=== PATIENT | female | born 1975 | race Caucasian/White ===

== ENCOUNTER 2016-06-22 12:44 | Emergency (ER) | payer OTHER ==
[2016-06-22 13:11] VITALS: BP 123/68
--- NOTE | 2016-06-22 13:25 | UC ---
Respiratory Complaint HPI - HPI Summary HPI Summary: sinus congestion for 2 weeks, chest congestion since last weekend. has had a few nights of fever. - History of Current Complaint Chief Complaint: UCGeneralIllness Stated Complaint: SINUS,COUGH,CONGESTION Time Seen by Provider: 06/22/16 13:13 Hx Obtained From: Patient Hx Last Menstrual Period: 2 weeks ago ?: No Onset/Duration: Sudden Onset, Lasting Weeks Severity Initially: Moderate Severity Currently: Moderate Pain Intensity: 6 Pain Scale Used: 0-10 Numeric Character: Cough: Nonproductive Aggravating Factors: Deep Breaths, Recumbent Position Alleviating Factors: Nothing Associated Signs And Symptoms: Positive: Fever, Wheezing, Nasal Congestion, Sinus Discomfort - Risk Factors Pulmonary Embolism Risk Factors: Negative - Allergies/Home Medications Allergies/Adverse Reactions: Allergies Allergy/AdvReac Type Severity Reaction Status Date / Time No Known Allergies Allergy Verified 06/22/16 13:11 PMH/Surg Hx/FS Hx/Imm Hx Previously Healthy: Yes - Surgical History Surgical History: None - Family History Known Family History: Negative: Cardiac Disease, Hypertension - Social History Alcohol Use: Occasionally Substance Use Type: None Smoking Status (MU): Never Smoked Tobacco Review of Systems Constitutional: Fever, Fatigue Skin: Negative Eyes: Negative ENT: Sore Throat, Nasal Discharge Respiratory: Shortness Of Breath, Cough Cardiovascular: Negative Gastrointestinal: Negative Genitourinary: Negative Motor: Negative Neurovascular: Negative Musculoskeletal: Negative Neurological: Negative Psychological: Negative All Other Systems Reviewed And Are Negative: Yes Physical Exam Triage Information Reviewed: Yes Appearance: Well-Nourished, Ill-Appearing, Pain Distress Vital Signs: Initial Vital Signs Temp 98.7 F 06/22/16 13:08 Pulse 106 06/22/16 13:08 Resp 16 06/22/16 13:08 BP 123/68 06/22/16 13:08 Pulse Ox 99 06/22/16 13:08 Vital Signs Reviewed: Yes Eye Exam: Normal Eyes: Positive: Conjunctiva Clear ENT: Positive: Pharyngeal erythema, Nasal congestion, Nasal drainage, TMs normal Dental Exam: Normal Neck exam: Normal Neck: Positive: Supple, Nontender, No Lymphadenopathy Respiratory Exam: Normal Respiratory: Positive: Chest non-tender, No respiratory distress, No accessory muscle use, Wheezing, Inspiration Cardiovascular Exam: Normal Cardiovascular: Positive: RRR, No Murmur Abdominal Exam: Normal Abdomen Description: Positive: Nontender, No Organomegaly, Soft Bowel Sounds: Positive: Present Musculoskeletal Exam: Normal Musculoskeletal: Positive: Strength Intact, ROM Intact, No Edema Neurological Exam: Normal Neurological: Positive: Alert, Muscle Tone Normal Psychological Exam: Normal Skin Exam: Normal UC Diagnostic Evaluation - Laboratory O2 Sat by Pulse Oximetry: 99 Respiratory Course/Dx - Course Course Of Treatment: hx obtained, exam performed, medication reviewed. prescriptions for bronchitis given. - Differential Dx/Diagnosis Differential Diagnosis/HQI/PQRI: Asthma, Bronchitis, Influenza, Laryngitis, Sinusitis, Tuberculosis Provider Diagnoses: bronchitis Discharge - Discharge Plan Condition: Stable Disposition: HOME Prescriptions: Albuterol HFA INHALER* [Ventolin HFA Inhaler*] 2 puff INH Q4H PRN #1 mdi PRN Reason: Cough guaiFENesin/CODIEN 100MG-10MG* [Robitussin AC 100Mg-10Mg*] 10 ml PO BEDTIME PRN #100 udc MDD 10 ml PRN Reason: Cough predniSONE TAB* [Deltasone TAB*] 40 mg PO DAILY #10 tab Patient Education Materials: Acute Bronchitis (ED) Additional Instructions: Take the medications as prescribed, Increase your fluid intake. Get plenty of rest. Follow up with any worsening symptoms.
== END 2016-06-22 13:27 | disposition home or self-care (01) ==
LOC: UCCORT 12:44
DX: J40 Bronchitis, not specified as acute or chronic (principal)
CPT/HCPCS: 99212; G0463

== ENCOUNTER 2016-07-10 19:56 | Emergency (ER) | payer OTHER ==
[2016-07-10 20:48] VITALS: BP 118/71
--- NOTE | 2016-07-10 20:59 | UC ---
Knee Pain HPI - HPI Summary HPI Summary: 41 yo female fell and landed on right patella 2 days ago bruised and is hurting more - History of Current Complaint Chief Complaint: UCLowerExtremity Stated Complaint: RIGHT KNEE INJURY-FALL Time Seen by Provider: 07/10/16 20:52 Hx Obtained From: Patient Hx Last Menstrual Period: uterine ablation Onset/Duration: Sudden Onset Severity Initially: Moderate Severity Currently: Moderate Location Of Injury: right knee Pain Intensity: 4 Pain Scale Used: 0-10 Numeric Character: Dull, Aching Aggravating Factor(s): Movement, Weight Bearing Alleviating Factor(s): Rest, Position Associated Signs And Symptoms: Positive: Swelling, Bruising Able to Bear Weight: Yes - Allergies/Home Medications Allergies/Adverse Reactions: Allergies Allergy/AdvReac Type Severity Reaction Status Date / Time No Known Allergies Allergy Verified 07/10/16 20:47 Home Medications: Home Medications NK [No Home Medications Reported] 07/10/16 [History Confirmed 07/10/16] PMH/Surg Hx/FS Hx/Imm Hx Previously Healthy: Yes - Surgical History Surgical History: None - Family History Known Family History: Negative: Cardiac Disease, Hypertension - Social History Alcohol Use: Occasionally Substance Use Type: None Smoking Status (MU): Never Smoked Tobacco - Immunization History Most Recent Tetanus Shot: 07/09/16 Review of Systems Constitutional: Negative Skin: Bruising Eyes: Negative ENT: Negative Respiratory: Negative Cardiovascular: Negative Gastrointestinal: Negative Genitourinary: Negative Motor: Negative Neurovascular: Negative Musculoskeletal: Arthralgia Neurological: Negative Psychological: Negative All Other Systems Reviewed And Are Negative: Yes Physical Exam Triage Information Reviewed: Yes Appearance: Well-Appearing, No Pain Distress, Well-Nourished Vital Signs: Initial Vital Signs Temp 98.7 F 07/10/16 20:42 Pulse 75 07/10/16 20:42 Resp 14 07/10/16 20:42 BP 118/71 07/10/16 20:42 Pulse Ox 97 07/10/16 20:42 Vital Signs Reviewed: Yes Eyes: Positive: Conjunctiva Clear ENT: Positive: Hearing grossly normal. Negative: Nasal congestion, Nasal drainage, Tonsillar exudate, Trismus, Muffled/hoarse voice Neck exam: Normal Neck: Positive: Supple, Nontender, No Lymphadenopathy Respiratory: Positive: Lungs clear, Normal breath sounds, No respiratory distress Cardiovascular: Positive: RRR, No Murmur Musculoskeletal: Positive: Strength Intact, ROM Intact Neurological: Positive: Alert Psychological Exam: Normal Knee Pain Course/Dx - Differential Dx/Diagnosis Provider Diagnoses: right knee contusion. rignt knee abrasion Discharge - Discharge Plan Condition: Stable Disposition: HOME Patient Education Materials: Contusion in Adults (ED), Abrasion (ED) Referrals: Shanthi Tyler MD [Primary Care Provider] - 1 Week (if not better) Additional Instructions: tylenol or advil for pain recheck for worsening symptoms/concerns of infection
--- NOTE | 2016-07-10 21:30 | RAD ---
Indication: Patellar region pain and abrasions following fall on Wednesday. Comparison: None. Technique: AP, tunnel, lateral, sunrise views RIGHT knee. REPORT AND IMPRESSION: Negative for effusion, fracture, malalignment. Very mild anterior soft tissue edema. No subcutaneous emphysema or conspicuous foreign body. Preserved joint spaces. Negative for arthropathic change.
== END 2016-07-10 21:46 | disposition home or self-care (01) ==
LOC: UCCORT 19:56
DX: S80.01XA Contusion of right knee, initial encounter (principal); S80.211A Abrasion, right knee, initial encounter; W19.XXXA Unspecified fall, initial encounter; Y93.9 Activity, unspecified; Y92.9 Unspecified place or not applicable
CPT/HCPCS: 99211; G0463

== ENCOUNTER 2017-07-06 15:23 | Emergency (ER) | payer OTHER ==
[2017-07-06 16:52] VITALS: BP 121/71
[2017-07-06] MEDS ORDERED: Cyclobenzaprine TAB* 10 MG PO ONE (17:23)
[2017-07-06] MEDS ORDERED: HYDROcodone/ACETAMIN 5-325 MG* 1 TAB PO ONE (17:23)
--- NOTE | 2017-07-06 17:29 | UC ---
Upper Extremity HPI - HPI Summary HPI Summary: 42 female presents to with complaints of right forearm injury and pain that began last night and worsened today. States she was using a belkofski bar and sledge hammer yesterday and thinks she may of aggravated/injured it but does not remember a specific incident. Has taken 800mg of ibuprofen, twice, today and tylenol with ice without relief. Pain worsens with moving wrist from side to side. Denies numbness/tingling. Nothing fell on arm, no concern for broken bone. IS able to move wrist and hand/fingers without issue. 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 Admits to swelling. Is right hand dominant. - History of Current Complaint Chief Complaint: UCUpperExtremity Stated Complaint: RIGHT ARM INJURY Time Seen by Provider: 07/06/17 16:54 Hx Obtained From: Patient Hx Last Menstrual Period: uterine ablation ?: No Onset/Duration: Sudden Onset, Lasting Hours, Still Present, Worse Since Severity Initially: Mild Severity Currently: Moderate Pain Intensity: 6 Pain Scale Used: 0-10 Numeric Location Of Pain: Is Discrete @ - right forearm Character: Aching Aggravating Factor(s): Movement, Internal/External Rotation - wrist Alleviating Factor(s): Nothing Associated Signs And Symptoms: Positive: Swelling Related History: Dominant Hand Right - Allergies/Home Medications Allergies/Adverse Reactions: Allergies Allergy/AdvReac Type Severity Reaction Status Date / Time No Known Allergies Allergy Verified 07/06/17 16:49 PMH/Surg Hx/FS Hx/Imm Hx - Additional Past Medical History Additional PMH: Denies PMHx - Surgical History Surgical History: None - Family History Known Family History: Negative: Cardiac Disease, Hypertension - Social History Alcohol Use: Occasionally Substance Use Type: None Smoking Status (MU): Never Smoked Tobacco - Immunization History Most Recent Tetanus Shot: 07/09/16 Vaccination Up to Date: Yes Review of Systems Constitutional: Negative Respiratory: Negative Cardiovascular: Negative Musculoskeletal: Arthralgia, Edema - right forearm, Myalgia Neurological: Negative All Other Systems Reviewed And Are Negative: Yes Physical Exam Triage Information Reviewed: Yes Appearance: Well-Appearing, Well-Nourished, Pain Distress - moderate with movement Vital Signs: Initial Vital Signs Temp 98.9 F 07/06/17 16:47 Pulse 74 07/06/17 16:47 Resp 16 07/06/17 16:47 BP 121/71 07/06/17 16:47 Pulse Ox 99 07/06/17 16:47 Neck: Positive: Supple Respiratory: Positive: Chest non-tender, Lungs clear, Normal breath sounds, No respiratory distress Cardiovascular: Positive: RRR, No Murmur, Pulses Normal - 2+ radial Musculoskeletal: Positive: Strength Intact, ROM Intact - pain with adduction and abduction of the right wrist, Edema @ - protrusion over the extensor pollicus longus and extensor digitorum muscle distal right forearm with tenderness to palpation, Other: - rest of msk normal without bruising, crepitus or step off Neurological: Positive: Alert Skin Exam: Normal Upper Extremity Course/Dx - Course Course Of Treatment: did not appear to require imaging at this time as patient has not had any significant trauma and due to TEA, HPI and PE. Appears to have sustained injury to muscle/tendon of extensor side of distal right forearm. Recommend continuing ibuprofen, muscle relaxer, heat/ice and rest. Give 3-5 days before improvement. aware of worsening signs adn symptoms to watch out for. follow up with pcp/ortho. no other concerns at this time. - Differential Dx/Diagnosis Differential Diagnosis/HQI/PQRI: Contusion, Fracture (Closed), Strain, Sprain Provider Diagnoses: contusion right forearm, muscle strain, forearm injury Discharge - Discharge Plan Condition: Stable Disposition: HOME Prescriptions: Cyclobenzaprine TAB* [Flexeril 10 MG TAB*] 5 mg PO BEDTIME PRN #10 tab PRN Reason: Spasms HYDROcodone/ACETAMIN 5-325 MG* [[place] 5-325 TAB*] 1 tab PO Q4H PRN #8 tab MDD 2 PRN Reason: Pain Patient Education Materials: Muscle Strain (ED), Arm Pain (ED) Referrals: Shanthi Tyler MD [Primary Care Provider] - Juan De La Cruz MD [Medical Doctor] - Additional Instructions: Continue taking ibuprofen to help with pain and inflammation. Apply heat and rest. Brace if comfortable. Pain medication as needed for intense discomfort. Muscle relaxer at bedtime to help with muscle tension. Any new or worsening symptoms or if symptoms persist please seek medical attention and follow up with ortho. Follow up with PCP.
== END 2017-07-06 17:34 | disposition home or self-care (01) ==
LOC: UCCORT 15:23
DX: S50.11XA Contusion of right forearm, initial encounter (principal); T14.8XXA Other injury of unspecified body region, initial encounter; X58.XXXA Exposure to other specified factors, initial encounter; Y92.9 Unspecified place or not applicable
CPT/HCPCS: 99212; A9270-GY; G0463

== ENCOUNTER 2017-09-15 07:51 | Emergency (ER) | payer OTHER ==
[2017-09-15 08:08] VITALS: BP 120/64
--- NOTE | 2017-09-15 08:29 | UC ---
Hand/Wrist HPI - HPI Summary HPI Summary: Right ring finger pain and swelling since yesterday. 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 She developed pain and swelling. No fever, chills, streaking. THere is swelling. No obvious trauma or FB. No contact with pricker or thorn. No dm. It hurts more to touch it. - History Of Current Complaint Chief Complaint: UCSkin Stated Complaint: RIGHT RING FINGER INJURY Time Seen by Provider: 09/15/17 08:18 Hx Obtained From: Patient Hx Last Menstrual Period: does not get ?: No Onset/Duration: Gradual Onset, Lasting Hours Severity Initially: Moderate Severity Currently: Moderate Pain Intensity: 5 Character Of Pain: Dull, Aching Aggravating Factor(s): Other - palpation. Alleviating Factor(s): Rest Associated Signs And Symptoms: Positive: Swelling, Redness. Negative: Bruising , Fever, Numbness/Tingling Related History: Dominant Hand Right - Allergies/Home Medications Allergies/Adverse Reactions: Allergies Allergy/AdvReac Type Severity Reaction Status Date / Time No Known Allergies Allergy Verified 09/15/17 08:06 PMH/Surg Hx/FS Hx/Imm Hx Previously Healthy: Yes - Surgical History Surgical History: None - Family History Known Family History: Negative: Cardiac Disease, Hypertension - Social History Occupation: Employed Full-time Alcohol Use: Occasionally Substance Use Type: None Smoking Status (MU): Never Smoked Tobacco - Immunization History Most Recent Tetanus Shot: 07/09/16 Vaccination Up to Date: Yes Review of Systems Skin: Other - redness. All Other Systems Reviewed And Are Negative: Yes Physical Exam Triage Information Reviewed: Yes Appearance: No Pain Distress, Well-Nourished, Ill-Appearing Vital Signs: Initial Vital Signs Temp 98.8 F 09/15/17 08:03 Pulse 85 09/15/17 08:03 Resp 16 09/15/17 08:03 BP 120/64 09/15/17 08:03 Pulse Ox 99 09/15/17 08:03 ENT: Positive: Normal ENT inspection. Negative: Pharyngeal erythema Respiratory: Positive: No respiratory distress, No accessory muscle use. Negative: Accessory muscle use Cardiovascular: Positive: No Murmur Abdomen Description: Negative: Distended Musculoskeletal Exam: Other - No pain with passive ROM testing of the right ring finger. Musculoskeletal: Positive: Edema @ - finger is generally edematous.. Negative: ROM Intact - Decreased rom of the finger due to swelling. Neurological: Positive: Alert, Muscle Tone Normal. Negative: Fatigued Psychological: Positive: Age Appropriate Behavior Skin Exam: Other Skin: Negative: rashes - Finger is pink and tender. No streaking. no redness up the arm and no right axillary adenopathy. No puncture wound, abcess, fluctuance. No signs of paronychia or fellon. Hand/Wrist Course/Dx - Course Course Of Treatment: likely cellulitis but no signs of FB or trauma. She agrees to go to ED for any worsening, otherwise f/u with pcp tomorrow. - Differential Dx/Diagnosis Provider Diagnoses: right finger cellulitis. Discharge - Sign-Out/Discharge Documenting (check all that apply): Discharge/Admit/Transfer - Discharge Plan Condition: Good Disposition: HOME Prescriptions: Dicloxacillin CAP* [Dynapen CAP*] 500 mg PO QID #40 cap Naproxen [Naproxen 500 mg tab] 500 mg PO BID PRN #20 tablet PRN Reason: Pain Patient Education Materials: Cellulitis (ED) Referrals: Shanthi Tyler MD [Primary Care Provider] - 1 Day - Billing Disposition and Condition Condition: GOOD Disposition: HOME
== END 2017-09-15 08:26 | disposition home or self-care (01) ==
LOC: UCCORT 07:51
DX: L03.011 Cellulitis of right finger (principal)
CPT/HCPCS: 99212; G0463

== ENCOUNTER 2018-08-03 15:27 | Emergency (ER) | payer OTHER ==
[2018-08-03 15:44] VITALS: BP 117/67
--- NOTE | 2018-08-03 16:47 | UC ---
Hand/Wrist HPI - HPI Summary HPI Summary: 43 yo female injured right fore arm 3 days ago Doesn't remember mechanism of injury bruising hurt to lift/grab objects she is right handed - History Of Current Complaint Chief Complaint: UCUpperExtremity Stated Complaint: RIGHT ARM INJURY Time Seen by Provider: 08/03/18 15:44 Hx Obtained From: Patient Hx Last Menstrual Period: does not get Onset/Duration: Sudden Onset, Lasting Weeks Severity Initially: Moderate Severity Currently: Moderate Pain Intensity: 6 - with lifting Pain Scale Used: 0-10 Numeric Character Of Pain: Dull, Aching Aggravating Factor(s): Movement, Lifting Alleviating Factor(s): Rest Associated Signs And Symptoms: Positive: Swelling, Bruising Related History: Dominant Hand Right Hands: 1 - hematoma/skin intact - Allergies/Home Medications Allergies/Adverse Reactions: Allergies Allergy/AdvReac Type Severity Reaction Status Date / Time No Known Allergies Allergy Verified 08/03/18 15:42 Home Medications: Home Medications Acetaminophen [Tylenol Extra Strength] 1,000 mg PO Q6HR PRN 08/03/18 [History Confirmed 08/03/18] PMH/Surg Hx/FS Hx/Imm Hx Previously Healthy: Yes - Surgical History Surgical History: None - Family History Known Family History: Negative: Cardiac Disease, Hypertension - Social History Alcohol Use: Occasionally Substance Use Type: None Smoking Status (MU): Never Smoked Tobacco - Immunization History Most Recent Tetanus Shot: 07/09/16 Vaccination Up to Date: Yes Review of Systems All Other Systems Reviewed And Are Negative: Yes Constitutional: Positive: Negative Skin: Positive: Bruising Eyes: Positive: Negative ENT: Positive: Negative Respiratory: Positive: Negative Cardiovascular: Positive: Negative Gastrointestinal: Positive: Negative Genitourinary: Positive: Negative Motor: Positive: Negative Neurovascular: Positive: Negative Musculoskeletal: Positive: Myalgia Neurological: Positive: Negative Psychological: Positive: Negative Physical Exam Triage Information Reviewed: Yes Appearance: Well-Appearing, No Pain Distress, Well-Nourished Vital Signs: Initial Vital Signs Temp 98.5 F 08/03/18 15:40 Pulse 83 08/03/18 15:40 Resp 15 08/03/18 15:40 BP 117/67 08/03/18 15:40 Pulse Ox 99 08/03/18 15:40 Vital Signs Reviewed: Yes Eyes: Positive: Conjunctiva Clear ENT: Positive: Hearing grossly normal. Negative: TMs normal, Trismus, Muffled voice, Hoarse voice Neck: Positive: Supple, Nontender, No Lymphadenopathy Respiratory: Positive: Lungs clear, Normal breath sounds, No respiratory distress Cardiovascular: Positive: RRR, No Murmur Musculoskeletal: Positive: ROM Intact, Other: - see image, right wrist and elbow FROM, tender hematoma Neurological: Positive: Alert Psychological Exam: Normal Skin Exam: Normal Diagnostics - Radiology No standard instances Radiology Interpretation Completed By: Radiologist Summary of Radiographic Findings: NO ACUTE OSSEOUS INJURY. IF SYMPTOMS PERSIST, RECOMMEND REPEAT IMAGING Hand/Wrist Course/Dx - Differential Dx/Diagnosis Provider Diagnosis: Traumatic hematoma of right forearm Discharge - Sign-Out/Discharge Documenting (check all that apply): Patient Departure All imaging exams completed and their final reports reviewed: Yes - Discharge Plan Condition: Stable Disposition: HOME Patient Education Materials: Hematoma (ED) Referrals: Shanthi Tyler MD [Primary Care Provider] - 2 Weeks (if not better) Additional Instructions: XR showed no fracture ice twice daily for 20 minutes continue ibuprofen recheck for new or worsening symptoms - Billing Disposition and Condition Condition: STABLE Disposition: Home
== END 2018-08-03 16:57 | disposition home or self-care (01) ==
LOC: UCCORT 15:27
DX: S50.11XA Contusion of right forearm, initial encounter (principal); X58.XXXA Exposure to other specified factors, initial encounter; Y92.9 Unspecified place or not applicable
CPT/HCPCS: 99211; G0463

== ENCOUNTER 2019-05-08 15:12 | Emergency (ER) | payer OTHER ==
[2019-05-08 15:25] VITALS: BP 137/72
--- NOTE | 2019-05-08 15:53 | UC ---
Cardiac HPI - HPI Summary HPI Summary: Pt presents with c/o mid sternal chest pain that radiates to back that began on 05/02/19. Pt denies pain worsens with exertion, denies sob, denies nausea or vomiting. Pt has hx of hiatal hernia and "GI "problems". - History of Current Complaint Chief Complaint: UCChestPain Stated Complaint: CHEST PAIN Hx Obtained From: Patient Hx Last Menstrual Period: does not get Onset/Duration: Sudden Onset, Lasting Weeks, Still Present, Worse Since - onset Timing: Constant Initial Severity: Mild Current Severity: Moderate Pain Intensity: 4 Chest Pain Location: Mid Sternal Character: Dull/Aching, Tightness, Pressure/Squeezing Aggravating Factor(s): Nothing Alleviating Factor(s): Nothing Associated Signs & Symptoms: Positive: Chest Pain, Back Pain - Risk Factors Pulmonary Embolism Risk Factors: Negative Cardiac Risk Factors: Negative Atrial Fibrillation: Negative TAD Risk Factors: Negative - Allergy/Home Medications Allergies/Adverse Reactions: Allergies Allergy/AdvReac Type Severity Reaction Status Date / Time No Known Allergies Allergy Verified 05/08/19 15:20 PMH/Surg Hx/FS Hx/Imm Hx Previously Healthy: Yes - Surgical History Surgical History: None - Family History Known Family History: Negative: Cardiac Disease, Hypertension - Social History Occupation: Employed Full-time Lives: With Family Alcohol Use: Occasionally Substance Use Type: None Smoking Status (MU): Never Smoked Tobacco Have You Smoked in the Last Year: No - Immunization History Most Recent Tetanus Shot: 07/09/16 Vaccination Up to Date: Yes Review of Systems All Other Systems Reviewed And Are Negative: Yes Constitutional: Positive: Negative Skin: Positive: Negative Eyes: Positive: Negative ENT: Positive: Negative Respiratory: Positive: Negative Cardiovascular: Positive: Chest Pain Gastrointestinal: Positive: Negative Genitourinary: Positive: Negative Motor: Positive: Negative Neurovascular: Positive: Negative Musculoskeletal: Positive: Negative Neurological: Positive: Negative Psychological: Positive: Negative Is Patient Immunocompromised?: No Physical Exam Triage Information Reviewed: Yes Appearance: Well-Appearing Vital Signs: Initial Vital Signs Temp 98.4 F 05/08/19 15:20 Pulse 80 05/08/19 15:20 Resp 16 05/08/19 15:20 BP 137/72 05/08/19 15:20 Pulse Ox 97 05/08/19 15:20 Vital Signs Reviewed: Yes Eye Exam: Normal ENT Exam: Normal Dental Exam: Normal Neck exam: Normal Respiratory Exam: Normal Respiratory: Positive: Lungs clear, Normal breath sounds, No respiratory distress Cardiovascular Exam: Normal Cardiovascular: Positive: Other: - no reproducible pain Abdominal Exam: Normal Abdomen Description: Positive: Nontender Musculoskeletal Exam: Normal Neurological Exam: Normal Psychological Exam: Normal Skin Exam: Normal - Assessment/Plan Course Of Treatment: Pt revealed that she is currently from her but that they still live together. Pt states that home life "is not that great" and she has 7 children and she does feel a "little stressed" Pt also revealed that she had GI work up last year with concern for crohns but did not complete f/u appointments. INcidental finding during testing was hiatal hernia. - Differential Diagnoses - Chest Pain Differential Diagnosis/HQI/PQRI: Acute ME - Differential Diagnoses - Hypertension Differential Diagnosis/HQI PQRI: Myocardial Infarction - Differential Diagnoses - Palpitations Differential Diagnosis/HQI/PQRI: Panic Disorder - Clinical Impression Provider Diagnosis: Chest pain, Stress at home Discharge ED - Sign-Out/Discharge Documenting (check all that apply): Patient Departure All imaging exams completed and their final reports reviewed: No Studies - Discharge Plan Condition: Stable Disposition: HOME Prescriptions: LORazepam [Ativan] 0.5 mg PO BEDTIME PRN #4 tablet MDD 1 tab PRN Reason: Anxiety Omeprazole 20 mg PO DAILY #10 capsule. Patient Education Materials: Chest Pain (ED), Anxiety (ED) Referrals: [facility] [place] [facility] REFERRAL [Outside] - If Needed Additional Instructions: Please follow up with your PCP and your GI specialist as soon as possible. - Billing Disposition and Condition Condition: STABLE Disposition: Home
--- OUTSIDE RECORDS SUMMARY | 2019-05-08 16:15 | XMS REPORT | Summary of Care ---
:[address] [facility] Address [address] [address] Care Team Providers Name Role Phone Shanthi Tyler MD Primary Care Provider Reason for Visit Reason Comments Follow Up MRI results of low back. MRI in Epic. Encounter Details Date Type Department Care Team Description 04/24/2019 Office Visit [facility] - Reece Farnsworth MD Spondylosis of lumbar region without myelopathy or radiculopathy (Primary Dx); [place] [facility] Spinal stenosis of lumbar region with radiculopathy [address] [facility] [place] [place] [address] [place] [address] [phone] Allergies No Known Allergiesdocumented as of this encounter (statuses as of 04/24/2019) Medications No known medicationsdocumented as of this encounter (statuses as of 04/24/2019) Active Problems Problem Noted Date Left leg pain 01/12/2019 Arthralgia of right knee 12/03/2016 documented as of this encounter (statuses as of 04/24/2019) Social History Tobacco Use Types Packs/Day Years Used Date Never Smoker Smokeless Tobacco: Never Used Sex Assigned at Date Recorded Not on file Job Start Date Occupation Industry Not on file Not on file Not on file Travel History Travel Start Travel End No recent travel history available. documented as of this encounter Last Filed Vital Signs Vital Sign Reading Time Taken Comments Blood Pressure 140/76 04/24/2019 2:43 PM EST Pulse 83 04/24/2019 2:43 PM EST Temperature - - Respiratory Rate - - Oxygen Saturation - - Inhaled Oxygen Concentration - - Weight 65.8 kg (145 lb) 04/24/2019 2:43 PM EST Height 170.2 cm (5' 7") 04/24/2019 2:43 PM EST Body Mass Index 22.71 04/24/2019 2:43 PM EST documented in this encounter Progress Notes Reece Farnsworth MD - 04/24/2019 2:45 PM EST Name: Lisa Fuentes : 1975 Date of Service: 04/24/2019 Chief Complaint Patient presents with Follow Up MRI results of low back. MRI in [facility]. Patient presents with persistent chronic bilateral low back pain not responding to conservative treatment. Also has right sciatic type symptoms worse with riding in the car or sitting. Review of MRI shows significant spondylosis/ facet arthrosis with some mild central canal stenosis and right foraminal narrowing particular at L4-L5. Physical exam shows a healthy-appearing woman in no acute distress. Alert and oriented. Back grossly normal. No tenderness. Good range of motion. Straight leg raising negative. Grossly no focal motor or sensory abnormalities right lower extremity. Impression: #1 chronic bilateral low back pain most likely secondary to facet arthrosis. #2 right sciatica most likely secondary to foraminal stenosis though radiographically not pronounced. Discussion: We will initially do medial branch blocks and see how patient does with this. May at some point consider epidurals for the sciatic pain as this is quite troublesome as well. ICD-9-CM ICD-10-CM 1. Spondylosis of lumbar region without myelopathy or radiculopathy 721.3 M47.816 2. Spinal stenosis of lumbar region with radiculopathy 724.02 M48.061 724.4 M54.16 Author: Reece Farnsworth MD 04/24/2019 15:01 This record contains sections created with voice recognition software. It has been electronically signed. A reasonable attempt at proofreading has been made. Please call with any questions or corrections. documented in this encounter Plan of Treatment Date Type Specialty Care Team Description 05/23/2019 [facility] Orthopedics Reece Farnsworth MD [address] [facility] [place] [address] [phone] Health Maintenance Due Date Last Done Comments DTaP/Tdap/Td Vaccines (1 - Tdap) 1985 DEPRESSION SCREENING 1986 HIV SCREENING 1989 LIPID DISORDER SCREENING 1992 PAP SMEAR 1995 MAMMOGRAM (SCREENING) 2014 INFLUENZA VACCINE (#1) 2019 HEPATITIS A IMMUNIZATION SERIES Aged Out No longer eligible based on patient's age to complete this topic HPV IMMUNIZATION SERIES Aged Out No longer eligible based on patient's age to complete this topic MENINGOCOCCAL VACCINE IMM Aged Out No longer eligible based on patient's age to complete this topic PNEUMOCOCCAL 0-64 YRS Aged Out No longer eligible based on patient's age to complete this topic documented as of this encounter Results Not on filedocumented in this encounter Visit Diagnoses Diagnosis Spondylosis of lumbar region without myelopathy or radiculopathy Lumbosacral spondylosis without myelopathy Spinal stenosis of lumbar region with radiculopathy Spinal stenosis, lumbar region, without neurogenic claudication documented in this encounter Insurance Payer Benefit Plan / Subscriber ID Effective Dates Phone Address Type Group [facility] xxxxxxxxxxx 2015-Present [employer] documented as of this encounter
--- OUTSIDE RECORDS SUMMARY | 2019-05-08 16:15 | XMS REPORT | Summary of Care ---
:1975 Author Organization [facility] Address [address] [address] Care Team Providers Name Role Phone Shanthi Tyler MD Primary Care Provider Reason for Referral MRI/CAT/PET Scan (Routine) Status Reason Specialty Diagnoses / Referred By Referred To Procedures Contact Contact Pending Review Diagnoses Spondylosis of lumbar region without myelopathy or radiculopathy Reece Farnsworth , Procedures MR LUMBAR SPINE WO CONTRAST [address] [place] [address] [place] [address] Reason for Visit Reason Comments Follow Up Chronic low back pain. DOI: Many years. No known injury. Patient reports low back pain with radiation down right leg. Patient does see chiropractor and helps temporarily. Encounter Details Date Type Department Care Team Description 04/10/2019 Office Visit [facility] - Reece Farnsworth MD Spondylosis of lumbar [address] without [address] [place] [address] B myelopathy or [facility] [place] [address] radiculopathy ([place] [address] Dx) [phone] Allergies No Known Allergiesdocumented as of this encounter (statuses as of 04/10/2019) Medications No known medicationsdocumented as of this encounter (statuses as of 04/10/2019) Active Problems Problem Noted Date Left leg pain 01/12/2019 Arthralgia of right knee 12/03/2016 documented as of this encounter (statuses as of 04/10/2019) Social History Tobacco Use Types Packs/Day Years [...] Sign Reading Time Taken Comments Blood Pressure 133/81 04/10/2019 4:05 PM EST Pulse 78 04/10/2019 4:05 PM EST Temperature - - Respiratory Rate - - Oxygen Saturation - - Inhaled Oxygen Concentration - - Weight 65.8 kg (145 lb) 04/10/2019 4:05 PM EST Height 170.2 cm (5' 7") 04/10/2019 4:05 PM EST Body Mass Index 22.71 04/10/2019 4:05 PM EST documented in this encounter Progress Notes Reece Farnsworth MD - 04/10/2019 4:00 PM EST Name: Lisa Fuentes : 1975 Date of Service: 04/10/2019 Chief Complaint Patient presents with Follow Up Chronic low back pain. DOI: Many years. No known injury. Patient reports low back pain with radiation down right leg. Patient does see chiropractor and helps temporarily. 44-year-old very active woman complains of chronic right greater than left low back pain with right posterior proximal leg pain but not distal to the knee. Has had chiropractic treatment as well as massage therapy. No longer helping. Has several jobs which are all her physical. Does not do sports anymore. Physical exam shows a healthy-appearing woman in no acute distress. Alert and oriented. Back grossly normal. Increased pain on hyperextension. Good range of motion. Hip range of motion full without pain. Positive Grayson test on the right. Tender right PSIS. Negative straight leg raising. No tightness of hamstrings. Grossly no focal motor or sensory abnormalities right lower extremities. 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 Impression: Not clear if etiology is primarily sacroiliac, lumbar facet, or possibly disc neurogenic/stenotic. Plan: MRI. I showed patient a plastic model demonstrating possible pathology. She is interested ininjections if indicated. ICD-9-CM ICD-10-CM 1. Spondylosis of lumbar region without myelopathy or radiculopathy 721.3 M47.816 MR LUMBAR SPINE [place] Author: Reece Farnsworth MD 04/10/2019 16:22 This record contains sections created with voice recognition software. It has been electronically signed. A reasonable attempt at proofreading has been made. Please call with any questions or corrections. documented in this encounter Plan of Treatment Name Type Priority Associated Diagnoses Order Schedule MR LUMBAR SPINE WO Imaging Routine Spondylosis of lumbar Expected: 2018, CONTRAST region without myelopathy Expires: 04/09/2020 or radiculopathy Health Maintenance Due Date Last Done Comments DEPRESSION SCREENING 1986 HIV SCREENING 1989 LIPID DISORDER SCREENING 1992 PAP SMEAR 1995 MAMMOGRAM (SCREENING) 2014 INFLUENZA VACCINE (#1) 2019 HPV IMMUNIZATION SERIES Aged Out No longer [...] of lumbar region without myelopathy or radiculopathy - Primary Lumbosacral spondylosis without myelopathy documented in this encounter Insurance Payer Benefit Plan / Subscriber ID Effective Dates Phone Address Type Group [facility] xxxxxxxxxxx 2015-Present [employer] documented as of this encounter
== END 2019-05-08 16:08 | disposition home or self-care (01) ==
LOC: UCCORT 15:12
DX: R07.89 Other chest pain (principal); Z73.3 Stress, not elsewhere classified
CPT/HCPCS: 93005; 99212; G0463